=== PATIENT | female | born 1985 | race Caucasian/White ===

== ENCOUNTER 2017-01-19 15:10 | Emergency (ER) | payer OTHER ==
[2017-01-19 15:31] LABS: Urine Bilirubin Negative (NEGATIVE); Urine Blood 25 /ul (NEGATIVE); Urine Ketone Negative (NEGATIVE); Urine Nitrite Negative (NEGATIVE); Urine Protein 30 mg/dL (NEGATIVE); Urine Specific Gravity 1.025 SP.GR. (1.005-1.010); Urine Urobilinogen Normal (NORMAL); Urine pH 6.5 pH (5.0-7.0)
--- OUTSIDE RECORDS SUMMARY | 2017-01-19 15:31 | XMS REPORT | Continuity of Care Document ---
:1985 Author Organization [facility] ([facility]) Address [address] [place] [address] Phone [phone] Care Team Providers Name Role Phone Shanelle Galvez Primary Care Provider [phone] Source Comments This disclosure is being made pursuant to the Care Everywhere program, applicable federal and state laws, and may not contain all informaitonavailable regarding this patient.[facility] ([facility]) Active Allergies and Adverse Reactions No Active Allergies Current Medications Not on file Active Problems Problem Noted Date Dysplasia of cervix, unspecified 09/01/2007 Immunizations Name Dates Previously Given Next Due HPV, quadrivalent (Gardasil) 11/01/2007 Social History Tobacco Use Types Packs/Day Years Used Date Never Assessed Last Filed Vital Signs Vital Sign Reading Time Taken Blood Pressure 147/81 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
--- OUTSIDE RECORDS SUMMARY | 2017-01-19 15:31 | XMS REPORT | Summary of Care ---
:1985 Author Organization [facility] Address [address] [place] [address] [address] [place] [address] Care Team Providers Name Role Phone ValeriojessicaPallavi Holt Primary Care Physician Encounter Date(s): 10/19/16 - 10/19/16 [facility] [address] [place] [id number] Discharge Disposition: 01 Discharged to Home or Self Care Attending Physician: Marcus Reid Admitting Physician: Marcus Reid Referring Physician: Marcus Reid Vital Signs No data available for this section Problem List Condition Effective Dates Status Health Status Informant Bipolar(Confirmed) Active Schizophrenia(Confirmed) Active Allergies, Adverse Reactions, Alerts Substance Reaction Severity Status Reglan swelling Active Medications amoxicillin-clavulanate 875 mg-125 mg oral tablet TAKE ONE TABLET BY MOUTH EVERY TWELVE HOURS Start Date: 01/29/16 Stop Date: 02/02/16 Status: DiscontinuedBactrim DS 800 mg-160 mg oral tablet 1 tab(s), Oral, BID, # 4 tab(s), 0 Refill(s), Start Date: 02/03/16 8:25:00 CDT, Pharmacy: [facility], [place] Start Date: 02/03/16 Stop Date: 02/05/16 Status: CompletedInvega Sustenna 117 mg/0.75 mL intramuscular suspension, extended release 0.75 mL, IM, qMonth, # 1 mL, 1 Refill(s), Start Date: 03/05/16 9:00:00 CDT, Pharmacy: [facility], [place] Start Date: 03/05/16 Status: OrderedInvega Sustenna 156 mg/mL intramuscular suspension, extended release 1 mL, IM, ONETIME, # 1 mL, 0 Refill(s), Start Date: 02/06/16 9:00:00 CDT, Pharmacy: [facility], [place] Start Date: 02/06/16 Status: OrderedMelatonin 1 mg oral tablet 1 tab(s), Oral, HS, PRN for insomnia, # 90 tab(s), 0 Refill(s), Start Date: 02/08 9:53:00 CDT Start Date: 01/29/16 Status: OrderedrisperiDONE 1 mg oral tablet Take 1 tablet every evening Start Date: 01/29/16 Stop Date: 02/02/16 Status: DiscontinuedtraMADol 50 mg oral tablet TAKE ONE TABLET BY MOUTH FOUR TIMES DAILY NEEDED Start Date: 01/29/16 Stop Date: 02/02/16 Status: Discontinued Results No data available for this section Immunizations No data available for this section Procedures Procedure Date Related Diagnosis Body Site Axilla procedure1 1boil removed Social History No data available for this section Assessment and Plan No data available for this section
[2017-01-19 15:41] LABS: Urine Appearance Cloudy; Urine Bacteria 3+; Urine Color Yellow; Urine RBC None Seen /hpf (0-5)
--- NOTE | 2017-01-19 16:07 | ERNOTE ---
ER Female HPI Date of Service: 01/19/17 Stated Complaint: UTI Presenting Symptoms: dysuria Time Seen by Provider: 01/19/17 15:25 Source: patient Exam Limitations: no limitations Immunizations: IMMUNIZATION HX Immunizations Up to Date Yes History of Influenza Vaccine No Hx Pneumococcal Vaccination No Allergies/Adverse Reactions: Allergies metoclopramide Allergy (Severe, Verified 01/19/17 15:18) Shortness of Breath methylphenidate HCl [From Ritalin] Allergy (Verified 01/19/17 15:18) Pt unsure what reaction was. metoclopramide HCl [From Reglan] Adverse Reaction (Verified 01/19/17 15:18) Home Medications: HOME MEDICATIONS risperiDONE [Risperdal] 1 mg PO DAILY 01/27/16 [Last Taken Unknown] traMADol HCL [Ultram] 50 mg PO QID PRN #40 tab 02/09/16 [Last Taken Unknown] Cefuroxime Axetil [Ceftin] 250 mg PO Q12H #20 tab 01/19/17 [Last Taken Unknown] - History of Present Illness Narrative: Patient presents to the ED with complaint of "I think I have a bladder infection " She relates that she has had a couple of days of dysuria. She does not know if she has had a fever but thinks she has had some chills. No vomiting. SHe denies abdominal pain but states she will get some occasional suprapubic cramping, none now, and some occasional back aching. Has not seen anyone else for this. Has had bladder infections before and it felt like this. No flank pain. Timing: Present: intermittent Quality: Present: moderate Activities at Onset: Present: none Modifying Factors - (Worsens): Present: urinating Associated Symptoms: Present: dysuria. Absent: nausea, vomiting Prior Treatment: Absent: recently seen Review of Systems - Review of Systems Constitutional: Absent: fever Respiratory: Absent: shortness of breath Cardiology: Absent: chest pain Gastrointestinal/Abdominal: Present: See HPI Genitourinary: Present: dysuria Neurological: Absent: weakness - Patient's Past Medical History Patient History - Medical: ADHD, Bipolar, Other Patient History - Cardiac/Respiratory: No pertinent hx Patient History - Cancer: No Hx of Cancer Patient History - Surgical Procedures: Ear Tubes Patient History - Other: None LMP (Calendar): 10/22/15 - Social History Living Situations: home Abuse History: No History of abuse Psych History: Hx of Anxiety, Hx of Depression, Hx of Schizophrenia Alcohol Use: none Drug Use: none - Immunizations Immunizations Up to Date: Yes Hx Pneumococcal Vaccination: No History of Influenza Vaccine: No Physical Exam - Physical Exam General Appearance: Present: alert, no apparent distress, other - non=toxic, well hydrated. Eye Exam: Normal inspection: bilateral, PERRL: bilateral Ears, Nose, Throat: Present: normal ENT inspection Neck: Present: normal inspection Respiratory: Present: no respiratory distress, normal breath sounds, no accessory muscle use, lungs clear Cardiovascular/Chest: Present: regular rate, rhythm Gastrointestinal/Abdominal: Present: normal bowel sounds, nontender, nondistended, soft, other - I cannot elicit any tenderness on abdominal exam at this time.. Absent: tenderness Back Exam: Present: other - no CVA tendenress. Nothing to suggest toxicity, pyelonephritis or kidney stone.. Absent: CVA tenderness (R), CVA tenderness (L) Neurological Exam: Absent: motor weakness Skin Exam: Absent: skin rash ED Progress - Results and Orders Patient's Lab Results:: I have reviewed the patient's lab results. - Vital Signs Patient's Vital Signs:: I have reviewed the patient's vital signs. Vital Signs: Vital Signs 01/19/17 15:15 Temperature 36.0 C L Pulse Rate 87 Respiratory 12 Rate Blood Pressure 144/77 O2 Sat by Pulse 99 Oximetry - Progress/Reassessment Chief Complaint: Genitourinary Problem Progress Note-Subjective: 01/19/17 16:01 Nothing to suggest sepsis, pyelonephritis or kidney stone. Will treat with ABx and get her f/u. I discussed warning signs and reasons to return as well as the need for close f/u. Departure Clinical Impression: UTI (urinary tract infection) - Departure Disposition: Home self-care Condition: Stable Instructions: Urinary Tract Infection, Adult, [id number] Additional Instructions: Fluids. Take antibiotic as directed. Follow-up with your primary doctor in 3 days for a re-check. Return here for fever, vomiting, flank pain or if your condition worsens or changes in any way. Prescriptions: Cefuroxime Axetil [Ceftin] 250 mg PO Q12H #20 tab
[2017-01-19 16:59] VITALS: BP 139/74
== END 2017-01-19 16:05 | disposition home or self-care (01) ==
LOC: ER 15:10
DX: N39.0 Urinary tract infection, site not specified (principal); F31.9 Bipolar disorder, unspecified

== ENCOUNTER 2017-01-29 17:47 | Emergency (ER) | payer OTHER ==
[2017-01-29 18:00] VITALS: BP 141/78
--- OUTSIDE RECORDS SUMMARY | 2017-01-29 18:35 | XMS REPORT | Continuity of Care Document ---
:1985 Author Organization [facility] ([facility]) Address [address] [place] [address] Phone [phone] Care Team Providers Name Role Phone Shanelle Galvez Primary Care Provider [phone] Source Comments This disclosure is being made pursuant to the Care Everywhere program, applicable federal and state laws, and may not contain all informaitonavailable regarding this patient.[facility] ([facility]) Active Allergies and Adverse Reactions No Active Allergies Current Medications Not on file Active Problems Problem Noted Date Dysplasia of cervix, unspecified 09/01/2007 Immunizations Name Dates Previously Given Next Due HPV, quadrivalent (Gardasil) 11/01/2007 Social History Tobacco Use Types Packs/Day Years Used Date Never Assessed Last Filed Vital Signs Vital Sign Reading Time Taken Blood Pressure 147/81 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
--- NOTE | 2017-01-29 18:45 | ERNOTE ---
Medical Problem HPI - Narrative Date of Service: 01/29/17 - General Chief Complaint: General Assessment Time Seen by Provider: 01/29/17 18:15 Source: patient Exam Limitations: no limitations - Immun/Allergies/Home Medications Immunizations: IMMUNIZATION HX Immunizations Up to Date Yes History of Influenza Vaccine No Hx Pneumococcal Vaccination No Allergies/Adverse Reactions: Allergies metoclopramide Allergy (Severe, Verified 01/19/17 15:18) Shortness of Breath methylphenidate HCl [From Ritalin] Allergy (Verified 01/19/17 15:18) Pt unsure what reaction was. metoclopramide HCl [From Reglan] Adverse Reaction (Verified 01/19/17 15:18) Home Medications: HOME MEDICATIONS risperiDONE [Risperdal] 1 mg PO DAILY 01/27/16 [Last Taken Unknown] traMADol HCL [Ultram] 50 mg PO QID PRN #40 tab 02/09/16 [Last Taken Unknown] Cefuroxime Axetil [Ceftin] 250 mg PO Q12H #20 tab 01/19/17 [Last Taken Unknown] - History of Present History Narrative: 31-year-old female presents to the emergency room for a lump on the left side of her nasal septum. Patient states that she has had this for 6 days. Date (Duration): 01/29/17 Timing: getting worse Severity: mild Review of Systems - Review of Systems Constitutional: Present: no symptoms reported EYE: Present: see HPI, other - states she is having sinus pain to the area causing blurred vision from watering eyes. does clear when she blinks. ENT: Present: See HPI, nose congestion. Absent: ear pain, ear discharge Respiratory: Present: no symptoms reported Cardiology: Present: no symptoms reported Gastrointestinal/Abdominal: Present: no symptoms reported Genitourinary: Present: no symptoms reported Musculoskeletal: Present: no symptoms reported Skin: Present: no symptoms reported Neurological: Present: no symptoms reported Endocrine: Present: no symptoms reported Hematologic/Lymphatic: Present: no symptoms reported Psych: Present: no symptoms reported - Patient's Past Medical History Patient History - Medical: ADHD, Bipolar, Other Patient History - Cardiac/Respiratory: No pertinent hx Patient History - Cancer: No Hx of Cancer Patient History - Surgical Procedures: Ear Tubes Patient History - Other: None LMP (Calendar): 10/22/15 - Social History Living Situations: home Abuse History: No History of abuse Psych History: Hx of Anxiety, Hx of Depression, Hx of Schizophrenia Smoking Status: Current every day smoker Have you smoked in the past 12 months: Yes Alcohol Use: none Drug Use: none - Immunizations Immunizations Up to Date: Yes Hx Pneumococcal Vaccination: No History of Influenza Vaccine: No Physical Exam - Physical Exam Narrative: the inside of the patients left nare has what appears to be a polyp or enlarged septal mass. Area is firm and pink. not different than her other nasal tissue. left nare is slightly occluded, right nare is patient. Unable to appreciate any deformity outside of nose. rest of ENT exam was normal. Denies blured vision at this time. states that her eyes water sometimes and her vision gets blurry. General Appearance: Present: wd/wn, alert, no apparent distress Eye Exam: Normal inspection: bilateral Ears, Nose, Throat: Present: normal except - - see note Neck: Present: normal inspection, nontender Respiratory: Present: no respiratory distress, normal breath sounds, no accessory muscle use, chest nontender, lungs clear Cardiovascular/Chest: Present: regular rate, rhythm, no murmur, normal peripheral pulses Gastrointestinal/Abdominal: Present: normal bowel sounds, nontender, nondistended, soft, no organomegaly Extremity Exam: Present: normal inspection, non-tender, normal range of motion, no edema Neurological Exam: Present: alert, oriented, normal mood/affect, no motor/ sensory deficits, rinkman II-XII nml as tested, normal cerebellar test, facial droop ED Progress - Vital Signs Patient's Vital Signs:: I have reviewed the patient's vital signs. Vital Signs: Vital Signs 01/29/17 17:56 Temperature 37.6 C H Pulse Rate 96 Respiratory 16 Rate Blood Pressure 141/78 O2 Sat by Pulse 99 Oximetry - Progress/Reassessment Chief Complaint: General Assessment Progress:: Unchanged Departure - Departure Clinical Impression: Nasal cavity mass Disposition: Home Follow Up Needed Condition: Stable Instructions: Deviated Septum Additional Instructions: Continue Home medications as directed. Follow up with an ENT doctor on Tuesday. You can give him paperwork of information about ENT physicians in our area please utilized as needed. Return to the emergency room if symptoms persist. Referrals: Pallavi Gerard MD [Primary Care Provider] -
== END 2017-01-29 18:45 | disposition home or self-care (01) ==
LOC: ER 17:47
DX: F17.210 Nicotine dependence, cigarettes, uncomplicated (principal); R22.0 Localized swelling, mass and lump, head

== ENCOUNTER 2017-03-01 16:42 | Emergency (ER) | payer OTHER ==
[2017-03-01] MEDS ORDERED: KETOROLAC TROMETHAMINE 60 MG/2 ML VIAL IM ONE ×2 (16:47→16:51)
[2017-03-01] MEDS ORDERED: LIDOCAINE HCL 20 ML UDC MM ONE (16:47)
[2017-03-01 16:48] VITALS: BP 127/86
[2017-03-01] MEDS ORDERED: CLINDAMYCIN PHOSPHATE 150 MG/ML VIAL IM ONE (16:48)
--- OUTSIDE RECORDS SUMMARY | 2017-03-01 16:51 | XMS REPORT | Continuity of Care Document ---
:1985 Author Organization [facility] ([facility]) Address [address] [place] [address] Phone [phone] Care Team Providers Name Role Phone Shanelle Galvez Primary Care Provider [phone] Source Comments This disclosure is being made pursuant to the Care Everywhere program, applicable federal and state laws, and may not contain all informaitonavailable regarding this patient.[facility] ([facility]) Active Allergies and Adverse Reactions No Active Allergies Current Medications Not on file Active Problems Problem Noted Date Dysplasia of cervix, unspecified 09/01/2007 Immunizations Name Dates Previously Given Next Due HPV, quadrivalent (Gardasil) 11/01/2007 Social History Tobacco Use Types Packs/Day Years Used Date Never Assessed Last Filed Vital Signs Vital Sign Reading Time Taken Blood Pressure 147/81 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
--- NOTE | 2017-03-01 16:59 | ERNOTE ---
ENT [facility] Date of Service: 03/01/17 Presenting Symptoms: dental pain Time Seen by Provider: 03/01/17 16:43 Source: patient Exam Limitations: no limitations - Immun/Allergies/Home Medications Immunizations: IMMUNIZATION HX Immunizations Up to Date Yes History of Influenza Vaccine No Hx Pneumococcal Vaccination No Allergies/Adverse Reactions: Allergies Allergy/AdvReac Type Severity Reaction Status Date / Time metoclopramide Allergy Severe Shortness Verified 03/01/17 16:48 of Breath methylphenidate HCl Allergy Verified 03/01/17 16:48 [From Ritalin] metoclopramide HCl AdvReac Verified 03/01/17 16:48 [From Reglan] Home Medications: HOME MEDICATIONS Clindamycin HCl [Cleocin HCl] 300 mg PO Q6H #40 capsule 03/01/17 [Last Taken Unknown] oxyCODONE HCL/ACETAMINOPHEN [Percocet 5 MG/325 MG] 1 tab PO Q4H PRN #20 tab 03/12 [Last Taken Unknown] - History of Present Illness Date (Duration): 02/26/17 Severity: Present: severe ENT Location: Present: dental Prearrival Treatment: Present: no prearrival treatment. Absent: over the counter meds, prescription meds Modifying Factors - Improves: Reports: nothing Modifying Factors - Worsens: Reports: heat, cold, other - eating Associated Symptoms - ENT: Reports: tooth pain Prior Treament: Reports: similar symptoms before Review of Systems - Review of Systems Constitutional: Present: no symptoms reported. Absent: recent illness, fever, chills, weakness, fatigue, malaise EYE: Present: no symptoms reported ENT: Present: other - R maxillary pain, broken tooth Respiratory: Present: no symptoms reported. Absent: shortness of breath, cough , wheezing Cardiology: Present: no symptoms reported. Absent: chest pain, palpitations, syncope, edema Gastrointestinal/Abdominal: Present: no symptoms reported. Absent: nausea, vomiting, diarrhea Musculoskeletal: Present: no symptoms reported Skin: Present: no symptoms reported Neurological: Present: no symptoms reported. Absent: headache, dizziness/light- headedness, numbness, tingling All Other Systems: All systems neg except as marked - Patient's Past Medical History Patient History - Medical: ADHD, Bipolar Patient History - Cardiac/Respiratory: No pertinent hx Patient History - Cancer: No Hx of Cancer Patient History - Surgical Procedures: Ear Tubes Patient History - Other: None LMP (Calendar): 10/22/15 - Social History Living Situations: home Abuse History: No History of abuse Psych History: Hx of Anxiety, Hx of Depression, Hx of Schizophrenia Smoking Status: Current every day smoker Have you smoked in the past 12 months: Yes Alcohol Use: none Drug Use: none - Immunizations Immunizations Up to Date: Yes Hx Pneumococcal Vaccination: No History of Influenza Vaccine: No Physical Exam - Physical Exam General Appearance: Present: wd/wn, alert, no apparent distress Eye Exam: Normal inspection: bilateral, PERRL: bilateral, EOMI: bilateral Ears, Nose, Throat: Present: normal except -, other - maxilary bicuspid broken off at gumline with cavity that extends into pulp. Multiple areas of poor dentition. Neck: Present: normal inspection, nontender. Absent: lymphadenopathy (R), lymphadenopathy (L) Respiratory: Present: no respiratory distress, normal breath sounds, no accessory muscle use, chest nontender, lungs clear Cardiovascular/Chest: Present: regular rate, rhythm, no murmur, normal peripheral pulses Gastrointestinal/Abdominal: Present: normal bowel sounds, nontender Back Exam: Present: normal inspection Extremity Exam: Present: normal inspection Neurological Exam: Present: alert, oriented, normal mood/affect, no motor/ sensory deficits Skin Exam: Present: normal color, warm/dry. Absent: pallor, skin rash ED Progress - Vital Signs Patient's Vital Signs:: I have reviewed the patient's vital signs. Vital Signs: Vital Signs 03/01/17 16:45 Temperature 37 C Pulse Rate 92 Respiratory 14 Rate Blood Pressure 127/86 O2 Sat by Pulse 95 Oximetry - Progress/Reassessment Chief Complaint: Dental Problem Progress:: Improved Departure Clinical Impression: Dental caries extending into pulp - Departure Disposition: Home self-care Condition: Good Instructions: Dental Caries Additional Instructions: Please follow up with dental provider as scheduled. Prescriptions: Clindamycin HCl [Cleocin HCl] 300 mg PO Q6H #40 capsule oxyCODONE HCL/ACETAMINOPHEN [Percocet 5 MG/325 MG] 1 tab PO Q4H PRN #20 tab PRN Reason: Pain
== END 2017-03-01 17:02 | disposition home or self-care (01) ==
LOC: ER 16:42
DX: K02.9 Dental caries, unspecified (principal); F17.200 Nicotine dependence, unspecified, uncomplicated

== ENCOUNTER 2017-03-03 10:41 | Day surgery (SDC) | payer OTHER ==
[~2017-03-03 10:41] MED LIST: ACETAMINOPHEN 325 MG TABLET PO PRN; DEXAMETHASONE SOD PHOSPHATE 10 MG/ML VIAL IV PRN; ONDANSETRON HCL/PF 2 MG/ML VIAL IV PRN; RINGERS SOLUTION,LACTATED 1,000 ML IV PRN; ceFAZolin SODIUM 1 GM in DEXTROSE 5 % IN WATER 100 ML IV PRN; oxyCODONE HCL/ACETAMINOPHEN 1 TAB TABLET PO PRN
--- OUTSIDE RECORDS SUMMARY | 2017-03-03 10:44 | XMS REPORT | Continuity of Care Document ---
:1985 Author Organization [facility] ([facility]) Address [address] [place] [address] Phone [phone] Care Team Providers Name Role Phone Shanelle Galvez Primary Care Provider [phone] Source Comments This disclosure is being made pursuant to the Care Everywhere program, applicable federal and state laws, and may not contain all informaitonavailable regarding this patient.[facility] ([facility]) Active Allergies and Adverse Reactions No Active Allergies Current Medications Not on file Active Problems Problem Noted Date Dysplasia of cervix, unspecified 09/01/2007 Immunizations Name Dates Previously Given Next Due HPV, quadrivalent (Gardasil) 11/01/2007 Social History Tobacco Use Types Packs/Day Years Used Date Never Assessed Last Filed Vital Signs Vital Sign Reading Time Taken Blood Pressure 147/81 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
[2017-03-03] MEDS: OXYMETAZOLINE HCL 150 SPRAY BTL NS PRN ×2 (11:25→12:25)
[2017-03-03] MEDS ORDERED: RINGERS SOLUTION,LACTATED 1,000 ML IV ONE ×2 (11:56→12:56)
[2017-03-03] MEDS ORDERED: MUPIROCIN 22 APPL TUBE TP ONE (12:55)
[2017-03-03] MEDS ORDERED: LIDOCAINE HCL/EPINEPHRINE 30 ML VIAL IJ ONE ×2 (12:55)
[2017-03-03] MEDS ORDERED: COCAINE HCL 4 APPL BTL TP ONE (12:55)
[2017-03-03] MEDS ORDERED: MORPHINE SULFATE 2 MG/ML DISP.SYRIN IV PRN ×2 (14:05→14:06)
[2017-03-03] MEDS ORDERED: MORPHINE SULFATE 4 MG/ML SYRG IV PRN ×2 (14:07→14:08)
[2017-03-03 15:32] VITALS: BP 143/85
== END 2017-03-03 10:42 | disposition home or self-care (01) ==
LOC: AMB 10:41
PROVIDERS: ATTEND Allergy & Immunology
PROC: 09BL0ZZ Excision of Nasal Turbinate, Open Approach (ICD-10-PCS; 2017-03-03)
PROC: 09SM0ZZ Reposition Nasal Septum, Open Approach (ICD-10-PCS; principal; 2017-03-03 11:50)
DX: J34.2 Deviated nasal septum (principal); J34.3 Hypertrophy of nasal turbinates; J34.89 Other specified disorders of nose and nasal sinuses

== ENCOUNTER 2017-03-10 19:13 | Emergency (ER) | payer OTHER ==
[2017-03-10] MEDS ORDERED: KETOROLAC TROMETHAMINE 60 MG/2 ML VIAL IM ONE ×2 (20:16→20:19)
--- OUTSIDE RECORDS SUMMARY | 2017-03-10 20:18 | XMS REPORT | Continuity of Care Document ---
:1985 Author Organization [facility] ([facility]) Address [address] [place] [address] Phone [phone] Care Team Providers Name Role Phone Shanelle Galvez Primary Care Provider [phone] Source Comments This disclosure is being made pursuant to the Care Everywhere program, applicable federal and state laws, and may not contain all informaitonavailable regarding this patient.[facility] ([facility]) Active Allergies and Adverse Reactions No Active Allergies Current Medications Not on file Active Problems Problem Noted Date Dysplasia of cervix, unspecified 09/01/2007 Immunizations Name Dates Previously Given Next Due HPV, quadrivalent (Gardasil) 11/01/2007 Social History Tobacco Use Types Packs/Day Years Used Date Never Assessed Last Filed Vital Signs Vital Sign Reading Time Taken Blood Pressure 147/81 

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
[2017-03-10 20:29] LABS: Mean Corpuscular Hemoglobin 30.2 pg (27-31); Mean Corpuscular Hgb Conc 35.1 g/dl (32-36); Mean Platelet Volume 9.4 fl (6.0-9.5); Neutrophil # 4.4 K/mm3 (1.3-6.0); Neutrophil % 61.2 % (42-75.0); Platelet Count 226 K/mm3 (150-450); White Blood Count 7.1 K/mm3 (4.0-10.5)
[2017-03-10 20:42] LABS: Albumin * 3.4 gm/dl (3.4-5.0); Anion Gap 10.2 mmol/L (6.8-13.8); BUN/Creatinine Ratio 15.8 (9.0-21.6); Bilirubin, Total 0.2 mg/dL (0.0-1.1); CRP 0.7 mg/dL (0.0-0.9); Ca. Corrected For Albumin 9.5 mg/dL (8.4-10.2); Calcium * 9.3 mg/dL (7.9-10.9); Carbon Dioxide 30.8 mmol/L (24-32.6); Total Protein 6.9 gm/dL (6.2-8.2)
[2017-03-10] MEDS ORDERED: METHYLPREDNISOLONE ACETATE 80 MG/ML VIAL IM ONE (21:23)
[2017-03-10] MEDS ORDERED: METHYLPREDNISOLONE ACETATE 80 MG/ML VIAL ONE (21:26)
[2017-03-10 21:38] VITALS: BP 123/58
== END 2017-03-10 21:42 | disposition home or self-care (01) ==
LOC: ER 19:13
DX: J33.8 Other polyp of sinus (principal); F17.210 Nicotine dependence, cigarettes, uncomplicated

== ENCOUNTER 2017-04-28 11:53 | Emergency (ER) | payer OTHER ==
[2017-04-28 11:59] VITALS: BP 120/88
[2017-04-28] MEDS ORDERED: KETOROLAC TROMETHAMINE 60 MG/2 ML VIAL IM ONE (12:17)
[2017-04-28] MEDS: KETOROLAC TROMETHAMINE 60 MG/2 ML VIAL IM ONE (12:21)
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
[2017-04-28] MEDS: CLINDAMYCIN PHOSPHATE 150 MG/ML VIAL IM ONE (12:29)
== END 2017-04-28 12:35 | disposition home or self-care (01) ==
LOC: ER 11:53
DX: K02.9 Dental caries, unspecified (principal); M27.2 Inflammatory conditions of jaws; F17.210 Nicotine dependence, cigarettes, uncomplicated

== ENCOUNTER 2017-05-01 12:03 | Emergency (ER) | payer OTHER ==
[2017-05-01 12:12] VITALS: BP 138/47
[2017-05-01] MEDS ORDERED: HYDROcodone/ACETAMINOPHEN 1 EACH TABLET PO ONE (12:22)
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
== END 2017-05-01 12:32 | disposition home or self-care (01) ==
LOC: ER 12:03
DX: K02.7 Dental root caries (principal); F31.70 Bipolar disorder, currently in remission, most recent episode unspecified; F90.9 Attention-deficit hyperactivity disorder, unspecified type

== ENCOUNTER 2017-07-22 08:57 | Emergency (ER) | payer OTHER ==
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
[2017-07-22 09:55] VITALS: BP 144/83
== END 2017-07-22 09:55 | disposition home or self-care (01) ==
LOC: ER 08:57
DX: K08.89 Other specified disorders of teeth and supporting structures (principal)